=== PATIENT | female | born 1970 | race Asian ===

== ENCOUNTER → 2023-08-18 10:06 | Outpatient (REF) | payer OTHER, SELFPAY | LOC: HWWDC 10:06 | PROVIDERS: ATTENDING PHYSICIAN Family Medicine | DX: Z12.31 Encounter for screening mammogram for malignant neoplasm of breast (principal) | CPT/HCPCS: 77063; 77067 ==

== ENCOUNTER → 2023-12-30 08:21 | Outpatient (REF) | payer OTHER, SELFPAY | LOC: WDC 08:21 | PROVIDERS: ATTENDING PHYSICIAN Family Medicine | DX: R92.30 Dense breasts, unspecified (principal) | CPT/HCPCS: 76641 ==

== ENCOUNTER → 2024-02-16 12:18 | Outpatient (REF) | payer OTHER, SELFPAY | LOC: WDC 12:18 | PROVIDERS: ATTENDING PHYSICIAN Family Medicine | DX: N63.11 Unspecified lump in the right breast, upper outer quadrant (principal) | CPT/HCPCS: 76642 ==

== ENCOUNTER → 2024-07-06 07:48 | Outpatient (REF) | payer OTHER, SELFPAY | LOC: WDC 07:48 | PROVIDERS: ATTENDING PHYSICIAN Family Medicine | DX: R92.8 Other abnormal and inconclusive findings on diagnostic imaging of breast (principal) | CPT/HCPCS: 76642 ==

== ENCOUNTER → 2024-08-29 07:53 | Outpatient (REF) | payer OTHER, SELFPAY | LOC: HWWDC 07:53 | PROVIDERS: ATTENDING PHYSICIAN Family Medicine | DX: Z12.31 Encounter for screening mammogram for malignant neoplasm of breast (principal) | CPT/HCPCS: 77063; 77067 ==